=== PATIENT | male | born 1945 | race Caucasian/White ===

== ENCOUNTER 2019-03-25 22:35 | Inpatient (IN) | payer MEDICARE, MEDICAID ==
[~2019-03-25] VITALS: Ht 175.3 cm; Wt 66.7 kg
[~2019-03-25 22:35] MED LIST: ALBU2.5V52 INH; ASPI-587 PO; CALC-712 PO; CLN.1T PO; DILT360C20 PO; ENXP30I.3 SC; EZET10TA23 PO; FENO145T20 PO; FISH1CAP15 PO; FURO20TA4 PO; HYDR12.56 PO; IBUP800T26 PO; LISI40TA PO; MORP5VIA IV; MTF500T PO; Multivitamins/Minerals Therap PO; NSTU5 PO; OXYC1TAB87 PO; POTA20TA15 PO; PRAV20TA PO; Polyethylene Glycol PO; SNN187T PO; TMZP15C PO
[2019-03-25 23:30] VITALS: BP 140/61
[2019-03-26] VITALS (12 sets, daily range): BP systolic 97–151; BP diastolic 53–85
[2019-03-26] MEDS: fentaNYL INJECTION 100 MCG/2 ML AMP IVP PRN ×3 (01:02→13:50)
[2019-03-26] MEDS: NS IV 1000 ML 1,000 ML IV SCH ×2 (01:03→15:17)
[2019-03-26 04:59] LABS: BASOPHILS % (AUTO) 0 % (0-10); EOSINOPHILS % (AUTO) 0 % (0-10); HEMATOCRIT 25 % (40-54); HEMOGLOBIN 9.2 G/DL (13.3-17.7); LYMPHOCYTES # (AUTO) 1.2 X 10^3 (1.0-4.0); LYMPHOCYTES % (AUTO) 7 % (12-44); MEAN CORPUSCULAR HEMOGLOBIN 33 PG (25-34); MEAN CORPUSCULAR HGB CONC 37 G/DL (32-36); MEAN CORPUSCULAR VOLUME 89 FL (80-99); MEAN PLATELET VOLUME 9.8 FL (7.4-10.4); MONOCYTES # (AUTO) 1.7 X 10^3 (0.0-1.0); MONOCYTES % (AUTO) 11 % (0-12); NEUTROPHILS # (AUTO) 12.9 X 10^3 (1.8-7.8); NEUTROPHILS % (AUTO) 82 % (42-75); PLATELET COUNT 363 10^3/uL (130-400); RED CELL DISTRIBUTION WIDTH 14.9 % (10.0-14.5); WHITE BLOOD COUNT 15.8 10^3/uL (4.3-11.0)
[2019-03-26 05:16] LABS: ALBUMIN 3.2 GM/DL (3.2-4.5); BILIRUBIN,TOTAL 0.7 MG/DL (0.1-1.0); CALCIUM 8.5 MG/DL (8.5-10.1); CREATININE SERUM 1.33 MG/DL (0.60-1.30); POTASSIUM 4.8 MMOL/L (3.6-5.0); TOTAL PROTEIN 5.7 GM/DL (6.4-8.2)
[2019-03-26 05:19] LABS: HYPOCHROMASIA SLIGHT; LYMPHOCYTES % (MANUAL) 8 %; MONOCYTES % (MANUAL) 9 %; NEUTROPHILS % (MANUAL) 83 %
[2019-03-26 05:20] LABS: TARGET CELLS SLIGHT
[2019-03-26] MEDS ORDERED: CATHETER FLUSH 10 ML SYR IV PRN (08:00)
[2019-03-26 08:15] LABS: PROTHROMBIN TIME PATIENT 14.9 SEC (12.2-14.7)
[2019-03-26 08:16] LABS: INR 1.1 (0.8-1.4)
--- NOTE | 2019-03-26 09:09 | Consultation-Cardiology ---
HPI-Cardiology Cardiology Consultation: Date of Consultation 03/26/19 Time Seen by a Provider: 08:45 Date of Admission 03-26-19 Attending Physician Matthew Jaramillo MD Admitting Physician Harjinder Bedolla MD Consulting Physician Odell Taylor MD HPI: Chief Complaint: Non-syncopal fall Mr. Saab is a 73 year old male transferred to [facility] from [facility]. He reports he was sitting in his recliner last evening. He states he got up to go to the kitchen using his walker. He reports he took a few steps when he lost his balance and tripped and fell into his television. He reports he has chronic joint and back pain with difficulty walking for which he uses a walker. He denies any report of syncope or near syncope. He states he does have some intermittent dizziness with changes in position, but was not having any dizziness when he fell last evening. He denies any c/o CP, palpitations. He reports chronic exertional dyspnea which he feels is unchanged. He reports ch ronic bilat LE swelling for which he wears compression stockings. He states he sees Dr. Ehsan Anderson of [facility] at [facility]. He reports he does drink anywhere from 3-4 beers every night, sometimes more. He is reporting right hip pain. Review of Systems-Cardiology Review of Systems Constitutional: No chills, No fever Eyes: No vision change Ears/Nose/Throat: No epistaxis, No nasal drainage, No recent hearing loss Respiratory: As described under HPI Cardiovascular: As described under HPI Gastrointestinal: No constipation, No diarrhea, No nausea, No vomiting Genitourinary: dysuria; No hematuria Skin: No rash, No ulcerations Psychiatric/Neurological: No anxiety, No depression, No focal weakness, No syncope Hematologic: No bleeding abnormalities GNY-Tiyjum-Bmsfht Hx Patient Social History Recent Foreign Travel: No Recent Infectious Disease Expo: No Immunizations Up To Date Date of Pneumonia Vaccine: Aug 06, 2015 Past Medical History PMH As described under Assessment. Family Medical History Family Medical History: He reports his mother had CAD passing away in her 80's. He reports his father had a CVA in his 80's. He reports a brother with CAD. Family History: Cardiovascular disease Hypertension 19 MOTHER (40) Myocardial infarction 19 FATHER (83) Allergies and Home Medications Allergies Coded Allergies: No Known Drug Allergies (Unverified , 05/31/14) Home Medications Aspirin 81 Mg Tablet.dr, 81 MG PO DAILY, (Reported) Calcium Carbonate/Simethicone 1 Each Tab.chew, 1 TAB PO 1200, (Reported) Cyclobenzaprine HCl 5 Mg Tablet, 5 MG PO Q8H PRN for MUSCLE SPASMS, (Reported) Diltiazem HCl 300 Mg Capsule.er, 300 MG PO DAILY, (Reported) Ezetimibe 10 Mg Tablet, 10 MG PO DAILY, (Reported) Fenofibrate Nanocrystallized 145 Mg Tablet, 145 MG PO DAILY, (Reported) Furosemide 20 Mg Tablet, 20 MG PO DAILY, (Reported) Hydrocodone/Acetaminophen 1 Each Tablet, 1 TAB PO Q6H PRN for PAIN-MODERATE, (Reported) Ibuprofen 200 Mg Tablet, 400 MG PO BID PRN for PAIN-MILD, (Reported) Losartan Potassium 50 Mg Tablet, 50 MG PO DAILY, (Reported) Naproxen Sodium 220 Mg Tablet, 220 MG PO DAILY, (Reported) King[place]-3 Fatty Acids/Fish Oil 1 Each Capsule, 1,200 MG PO DAILY, (Reported) Omeprazole 20 Mg Capsule.dr, 20 MG PO DAILY, (Reported) Potassium Chloride 20 Meq Tablet.er, 20 MEQ PO DAILY, (Reported) Pravastatin Sodium 20 Mg Tablet, 20 MG PO HS, (Reported) Vitamin B Complex 1 Each Tablet, 1 TAB PO DAILY, (Reported) Physical Exam-Cardiology Physical Exam Vital Signs/I&O Capillary Refill : Less Than 3 Seconds Constitutional: AAO x 3, other (thin) HEENT: PERRL, hearing is well preserved Neck: No carotid bruit; carotid pulses are 2 + bilaterally Respiratory: No accessory muscle use, No respiratory distress; chest expansion is symmetric, chest is bilaterally symmetric, lungs clear to auscultation Cardiovascular: regular rate-rhythm; No JVD; S1 and S2, systolic murmur Gastrointestinal: No tender; soft, round, audible bowel sounds Extremities: swelling (mild bilat LE swelling) Neurologic/Psychiatric: grossly intact (did not manipulate right leg d/t fracture) Skin: No rash on exposed areas, No ulcerations on exposed areas Data Review Labs Microbiology 03/26/19 MRSA Screen - Final, Complete MRSA not isolated ECG Impression ECG Initial ECG Rhythm: Normal Sinus A/P-Cardiology Assessment/Admission Diagnosis S/P right femur fracture from a non-syncopal fall Reports h/o valvular heart dz, details unknown, followed by Dr. Anderson at [facility], [place], [place] HTN HLD - statin tx Hyponatremia of undetermined etiology - possibly d/t chronic heavy alcohol use Acute renal insufficiency H/O Heavy ETOH use H/O chronic back pain GERD Clinical Quality Measures DVT/VTE Risk/Contraindication: Risk Factor Score Per Nursin RFS Level Per Nursing on Admit: 4+=Very High CORBIN MONREAL Mar 26, 2019 09:09
--- NOTE | 2019-03-26 10:03 | NUR ---
DR NEGRNO NOTIFIED OF PER PT AND DAUGHTER THAT PT IS DAILY DRINKER 6-8 BEERS.
[2019-03-26] MEDS ORDERED: FENO145T37 PO (10:07)
[2019-03-26] MEDS ORDERED: OMEP20CA12 PO (10:07)
[2019-03-26] MEDS ORDERED: PRAV20TA3 PO (10:07)
[2019-03-26] MEDS ORDERED: EZET10TA49 PO (10:07)
--- NOTE | 2019-03-26 10:12 | Consultation-Cardiology ---
HPI-Cardiology Cardiology Consultation: Date of Consultation 03/26/19 Time Seen by a Provider: 09:45 Date of Admission Attending Physician Matthew Jaramillo MD Admitting Physician Harjinder Bedolla MD Consulting Physician ANA GONZALEZ MD, MA, FACP, FAC, [facility], [facility] Physician requesting consult: Dr Marcelino HPI: Chief Complaint: Reason for consultation: cardiac eval prior to hip surgery HPI Mr. Saab is a 73 year old male transferred to [facility] from [facility]. He reports he was sitting in his recliner last evening. He states he got up to go to the kitchen using his walker. He reports he took a few steps when he lost his balance and tripped and fell into his television. He reports he has chronic joint and back pain with difficulty walking for which he uses a walker. He denies any report of syncope or near syncope. He states he does have some intermittent dizziness with changes in position, but was not having any dizziness when he fell last evening. He denies any c/o CP, palpitations. He reports chronic exertional dyspnea which he feels is unchanged. He reports chronic bilat LE swelling for which he wears compression stockings. He states he sees Dr. Ehsan Anderson of [facility] at [facility]. He reports he does drink anywhere from 3-4 beers every night, sometimes more. He is reporting right hip pain. Review of Systems-Cardiology Review of Systems Constitutional: No chills, No fever Eyes: No vision change Ears/Nose/Throat: No epistaxis, No nasal drainage, No recent hearing loss Respiratory: As described under HPI Cardiovascular: As described under HPI Gastrointestinal: No constipation, No diarrhea, No nausea, No vomiting Genitourinary: dysuria; No hematuria Skin: No rash, No ulcerations Psychiatric/Neurological: No anxiety, No depression, No focal weakness, No syncope Hematologic: No bleeding abnormalities PPH-Ivqwsa-Kzoavw Hx Patient Social History Recent Foreign Travel: No Recent Infectious Disease Expo: No Immunizations Up To Date Date of Pneumonia Vaccine: Aug 06, 2015 Past Medical History PMH As described under Assessment. Family Medical History Family Medical History: He reports his mother had CAD passing away in her 80's. He reports his father had a CVA in his 80's. He reports a brother with CAD. Family History: Cardiovascular disease Hypertension 19 MOTHER (40) Myocardial infarction 19 FATHER (83) Allergies and Home Medications Allergies Coded Allergies: No Known Drug Allergies (Unverified , 05/31/14) Home Medications Aspirin 81 Mg Tablet.dr, 81 MG PO DAILY, (Reported) Calc/D3/Mag/Zn/Orthotic Finish Grinding Technician/Daniel/Alton 1 Each Tablet, 1 EACH PO DAILY, (Reported) Ezetimibe 10 Mg Tablet, 10 MG PO DAILY, (Reported) Fenofibrate Nanocrystallized 145 Mg Tablet, 145 MG PO DAILY, (Reported) Fish Oil/Dha/Epa 1 Each Capsule, 1,200 MG PO BID, (Reported) Furosemide 20 Mg Tablet, 10 MG PO DAILY, (Reported) Lisinopril 40 Mg Tablet, 40 MG PO DAILY, (Reported) Metformin Hcl 500 Mg Tablet, 500 MG PO DAILY, (Reported) Potassium Chloride 20 Meq Tab.prt.sr, 20 MEQ PO BID, (Reported) Pravastatin Sodium 20 Mg Tablet, 20 MG PO HS, (Reported) [Multivitamins/Minerals Therap] 1 EA TABLET, 1 EA PO DAILY@0700 Prescribed by: JAMES HUNTLEY on 06/03/14 1315 Patient Home Medication List Home Medication List Reviewed: Yes Physical Exam-Cardiology Physical Exam Vital Signs/I&O 03/25/19 03/25/19 03/25/19 03/26/19 23:30 23:30 23:30 04:00 Temp 97.9 97.7 97.0 Pulse 63 63 59 Resp 18 18 20 B/P (MAP) 140/61 (87) 140/61 141/64 (89) Pulse Ox 96 96 95 96 O2 Delivery Room Air Room Air Room Air Room Air 03/26/19 08:13 Temp 97.5 Pulse 65 Resp 22 B/P (MAP) 126/67 (86) Pulse Ox 98 O2 Delivery Room Air O2 Flow Rate 0.00 Capillary Refill : Less Than 3 Seconds Constitutional: AAO x 3, other (thin) HEENT: PERRL, hearing is well preserved Neck: No carotid bruit; carotid pulses are 2 + bilaterally Respiratory: No accessory muscle use, No respiratory distress; chest expansion is symmetric, chest is bilaterally symmetric, lungs clear to auscultation Cardiovascular: regular rate-rhythm; No JVD; S1 and S2, systolic murmur Gastrointestinal: No tender; soft, round, audible bowel sounds Extremities: swelling (mild bilat LE swelling) Neurologic/Psychiatric: grossly intact (did not manipulate right leg d/t fracture) Skin: No rash on exposed areas, No ulcerations on exposed areas Data Review Labs Laboratory Tests 03/26/19 04:40: White Blood Count 15.8H, Red Blood Count 2.79L, Hemoglobin 9.2L, Hematocrit 25L, Mean Corpuscular Volume 89, Mean Corpuscular Hemoglobin 33, Mean Corpuscular H emoglobin Concent 37H, Red Cell Distribution Width 14.9H, Platelet Count 363, Mean Platelet Volume 9.8, Neutrophils (%) (Auto) 82H, Lymphocytes (%) (Auto) 7L, Monocytes (%) (Auto) 11, Eosinophils (%) (Auto) 0, Basophils (%) (Auto) 0, Neutrophils # (Auto) 12.9H, Lymphocytes # (Auto) 1.2, Monocytes # (Auto) 1.7H, Eosinophils # (Auto) 0.0, Basophils # (Auto) 0.0, Neutrophils % (Manual) 83, Lymphocytes % (Manual) 8, Monocytes % (Manual) 9, Hypochromasia SLIGHT, Target Cells SLIGHT, Sodium Level 126L, Potassium Level 4.8, Chloride Level 98, Carbon Dioxide Level 21, Anion Gap 7, Blood Urea Nitrogen 16, Creatinine 1.33H, Estimat Glomerular Filtration Rate 53, BUN/Creatinine Ratio 12, Glucose Level 111H, Calcium Level 8.5, Corrected Calcium 9.1, Total Bilirubin 0.7, Aspartate Amino Transf (AST/SGOT) 32, Alanine Aminotransferase (ALT/SGPT) 16, Alkaline Phosphatase 44, Total Protein 5.7L, Albumin 3.2 03/26/19 07:45: Prothrombin Time 14.9H, INR Comment 1.1 Laboratory Tests 03/26/19 04:40 A/P-Cardiology Assessment/Admission Diagnosis S/P right femur fracture from a non-syncopal fall Echo of 03/26/19: LVEF 55-60%, mild to mod MR, mod dilatation of LA, RVSP estimated to be within normal limits HTN HLD - statin tx H/o IFG vs borderline DM II Hyponatremia of undetermined etiology - possibly d/t chronic heavy alcohol use Renal insufficiency of undetermined age, probably acute H/O Heavy ETOH use H/O chronic back pain GERD Discussion and Recomendations * Cardiac risk for non-cardiac surgery is estimated be low to intermediate. It appears reasonable to proceed with necessary surgery * We recommend arnie-op DVT prophylaxis * Monitor labs Clinical Quality Measures DVT/VTE Risk/Contraindication: Risk Factor Score Per Nursin RFS Level Per Nursing on Admit: 4+=Very High ANA GONZALEZ MD [facility] Mar 26, 2019 10:12
--- NOTE | 2019-03-26 10:24 | History & Physical-Hospitalist ---
History of Present Illness HPI/Chief Complaint The patient is a 73-year-old white male who was transferred from the [facility]. He is disabled with compression fractures in the lumbar spine and subsequent sciatica issues. In addition he previously had a left hip fracture. Yesterday he attempted to get out of the recliner using a walker. His legs buckled and he fell. He states that he was on the floor for 3 hours before getting help. He went to the emergency room and was found to have a right femur fracture. I received a call from Mr. Kapoor to transfer him here and he had arranged for Dr. Marcelino to perform the definitive stabilization. The patient reports that he drinks beer on a daily basis he told Mr. Kapoor 2-3 beers per day. His family states more like 4-6 beers per day. Date Seen 03/26/19 Time Seen by a Provider: 10:19 Attending Physician Matthew Negron MD PCP Harjinder Bedolla MD Referring Physician Date of Admission Mar 26, 2019 at 00:09 Home Medications & Allergies Home Medications Reviewed patient Home Medication Reconciliation performed by pharmacy medication reconciliations transfill technician and/or nursing. Patients Allergies have been reviewed. Allergies Allergies Coded Allergies No Known Drug Allergies (Unverified05/31/14) Past Zfoxlen-Lkqnzk-Jxejgn Hx Past Med/Social Hx: Reviewed Nursing Past Med/Soc Hx Patient Social History Recent Foreign Travel: No Contact w/other who traveled: No Recent Infectious Disease Expo: No Immunizations Up To Date Date of Pneumonia Vaccine: Aug 06, 2015 Past Medical History Reproductive: No Sexually Transmitted Disease: No HIV/AIDS: No Musculoskeletal: Arthritis, Chronic Back Pain, Fractures Loss of Vision: Denies Hearing Impairment: Hard of Hearing Adverse Reaction to Blood Sena: No Family History Cardiovascular disease Hypertension 19 MOTHER (40) Myocardial infarction 19 FATHER (83) Review of Systems Constitutional: see HPI EENTM: no symptoms reported Respiratory: no symptoms reported Cardiovascular: other (history of ischemic heart disease.) Gastrointestinal: constipation Genitourinary: no symptoms reported Musculoskeletal: see HPI Physical Exam Physical Exam Vital Signs Vital Signs - First Documented 03/26/19 08:13 O2 Flow Rate 0.00 Capillary Refill : Less Than 3 Seconds Height, Weight, BMI Height: 5'9.00" Weight: 147lbs. 0.5oz. 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 Assessment/Plan Admission Diagnosis Chronic back pain/sciatica. 2.arteriosclerotic heart disease. 3.fracture right femur. Admission Status: Inpatient Order (span 2 midnights) Reason for Inpatient Admission: Fracture requiring operative repair plus rehabilitation Clinical Quality Measures DVT/VTE Risk/Contraindication: Risk Factor Score Per Nursin RFS Level Per Nursing on Admit: 4+=Very High MATTHEW NEGRON MD Mar 26, 2019 10:24
[2019-03-26] MEDS ORDERED: POTA-51 PO (11:01)
[2019-03-26] MEDS ORDERED: FURO20TA4 PO (11:01)
[2019-03-26] MEDS ORDERED: VITA1TAB17 PO (11:01)
[2019-03-26] MEDS ORDERED: ASPI-983 PO (11:01)
[2019-03-26] MEDS ORDERED: LOSA50TA63 PO (11:01)
[2019-03-26] MEDS ORDERED: OMEG-109 PO (11:01)
[2019-03-26] MEDS ORDERED: NAPR220T66 PO (11:01)
[2019-03-26] MEDS ORDERED: CALC-899 PO (11:01)
[2019-03-26] MEDS ORDERED: DILT300C49 PO (11:01)
[2019-03-26] MEDS ORDERED: CYCL5TAB PO (11:06)
[2019-03-26] MEDS ORDERED: IBUP-30 PO (11:06)
[2019-03-26] MEDS ORDERED: HYDR-3812 PO (11:06)
--- NOTE | 2019-03-26 11:09 | NUR ---
PATIENT HAD A LIST OF MEDICATIONS WITH HIM THAT HE STATES IS THE MOST UP TO DATE LIST. I COMPARED IT WITH THE EXT MED HX . IN ADDITION TO THAT LIST HE WAS RECENTLY PRESCRIBED SHORT SUPPLIES OF HYDROCODONE AND CYCLOBENZAPRINE HE HAS BEEN USING. HE STATES HE FINISHED THE PREDNISONE. HE WAS INSTRUCTED TO HOLD OFF ON HIS ALEVE AND IBU WHILE TAKING THE HYDROCODONE AND FLEXERIL. HIS POTASSIUM IS FILLED BID HOWEVER HE STATES HE ONLY TAKES ONE DAILY. HE TAKES THE FOLLOWING OTC: ASPIRIN 81MG DAILY MARY SELTER NOON ADVIL PRN ALEVE DAILY FISH OIL DAILY B COMPLEX DAILY
[2019-03-26 11:54] LABS: BUN/CREATININE RATIO 13; CARBON DIOXIDE 22 MMOL/L (21-32); CHLORIDE 101 MMOL/L (98-107); CREATININE SERUM 1.11 MG/DL (0.60-1.30); GFR ESTIMATED > 60; GLUCOSE 87 MG/DL (70-105); POTASSIUM 4.8 MMOL/L (3.6-5.0); SODIUM 130 MMOL/L (135-145)
--- NOTE | 2019-03-26 12:08 | CONSULTATION REPORT ---
DATE OF SERVICE: 03/26/2019 REASON FOR CONSULTATION: Right subtrochanteric femur fracture, closed, nondisplaced. HISTORY OF PRESENT ILLNESS: The patient is a 73-year-old gentleman who fell at home, striking his leg on the ground. He presented to an outside facility where he was found to have a subtrochanteric femur fracture. The fracture was nondisplaced and just distal to the lesser trochanter in a transverse fashion. The outside facility had no orthopedic coverage. Therefore, he was transferred here and admitted to the hospitalist. The patient denies antecedent pain. PAST MEDICAL HISTORY: Hypertension, hyperlipidemia, type 2 diabetes, mitral valve regurgitation. PRIMARY CARE PROVIDER: Dr. Ann Gaitan. PAST SURGICAL HISTORY: Left hip pinning, tonsillectomy. FAMILY HISTORY: Significant for stroke and heart disease. MEDICATIONS: Metformin, , Zetia, potassium, pravastatin, B complex, omega 3, lisinopril. PHYSICAL EXAMINATION: GENERAL: The patient is a well-developed, well-nourished, in no acute distress. EXTREMITIES: The right lower extremity is slightly externally rotated. He has symmetric pulses. He has intact dorsiflexion and plantarflexion of the toes. He is tender over the proximal femur on the right. No skin lesions are noted. RADIOGRAPHS: As above. IMPRESSION: Right subtrochanteric femur fracture. PLAN: Right femur intramedullary nail. The risks, benefits, options, ramifications and recovery were discussed at length with the patient. He understands and wishes to proceed. Job ID: [id number] DocumentID: [id number] Dictated Date: 03/26/2019 07:32:38 Operations Staff Specialist Security Date: 03/26/2019 12:08:24 Dictated By: RC MITCHELL MD
[2019-03-26] MEDS ORDERED: HYDROmorphone 2 MG/ML VIAL (DILAUDID) ONE (15:19)
[2019-03-26] MEDS ORDERED: ONDANSETRON 4 MG/2 ML (SDV) Z0FRAN ONE ×2 (15:20→17:10)
[2019-03-26] MEDS ORDERED: morphine INJ 10 MG/ML 1ML (SYR OR VIAL) ONE (15:20)
[2019-03-26] MEDS ORDERED: LIDOCAINE PF 2% 5 ML (XYLOCAINE) VIAL ONE (15:26)
[2019-03-26] MEDS ORDERED: proPOfol 200 MG/20 ML (DIPRIVAN) VIAL IV ONE (15:26)
[2019-03-26] MEDS ORDERED: fentaNYL INJECTION 100 MCG/2 ML AMP ONE (15:27)
--- NOTE | 2019-03-26 15:30 | NUR ---
PT TAKEN OFF FLOOR FOR PROCEDURE AT THIS TIME. Addendum: 03/26/19 at 1845 by MARSHA PORTILLO RN IV CEFAZOLIN SENT WITH STAFF THAT IS SCHEDULED FOR 1277
[2019-03-26] MEDS ORDERED: oxyCODONE/APAP 5/325MG (PERCOCET 5) TABLET PO PRN (15:45)
[2019-03-26] MEDS ORDERED: ONDANSETRON 4 MG/2 ML (SDV) Z0FRAN IVP PRN ×2 (15:45→17:15)
[2019-03-26] MEDS ORDERED: fentaNYL INJECTION 100 MCG/2 ML AMP IVP PRN (15:45)
--- NOTE | 2019-03-26 15:45 | Progress Note-Pre Operative ---
Pre-Operative Progress Note H&P Reviewed The H&P was reviewed, patient examined and no changes noted. Date Seen by Provider: Mar 26, 2019 Time Seen by Provider: 15:45 Date H&P Reviewed: Mar 26, 2019 Time H&P Reviewed: 15:45 Pre-Operative Diagnosis: right subtrochanteric femur fracture RC MITCHELL MD Mar 26, 2019 15:45
--- NOTE | 2019-03-26 15:46 | Progress Note-Post Operative ---
Post-Operative Progess Note Surgeon (s)/Overlock Elastic Attacher (s) Surgeon RC MITCHELL MD Overlock Elastic Attacher: Tim Stanton Pre-Operative Diagnosis right subtrochanteric femur fracture Post-Operative Diagnosis right subtrochanteric femur fracture Procedure & Operative Findings Date of Procedure 03/26/19 Procedure Performed/Findings intramedullary nail right femur Anesthesia Type GETA Estimated Blood Loss Estimated blood loss (mL): 100ml Specimens/Packing Specimens Removed none Packing: none RC MITCHELL MD Mar 26, 2019 15:46
[2019-03-26] MEDS ORDERED: ceFAZolin 2 GM/50 ML NS 50 ML IV NR (16:30)
[2019-03-26] MEDS ORDERED: SEVOFLURANE (ULTANE) 15 ML INHAL SOLN ONE (17:00)
[2019-03-26] MEDS ORDERED: morphine INJ 10 MG/ML 1ML (SYR OR VIAL) IVP ONE (17:15)
[2019-03-26] MEDS ORDERED: HYDROmorphone 2 MG/ML VIAL (DILAUDID) IV ONE (17:15)
[2019-03-26] MEDS ORDERED: LACTATED RINGERS 1,000 ML IV PRN (18:00)
[2019-03-26] MEDS ORDERED: NS IV 1000 ML 1,000 ML IV PRN ×2 (18:00→18:15)
--- NOTE | 2019-03-26 18:15 | NUR ---
PT BACK TO FLOOR AT THIS TIME. REPORT RECEIVED FROM ROSY. PT A/O. RATES PAIN 03/02. IV IN LAC INTACT. VS OBTAINED. ICE IN PLACE TO RIGHT LEG. 1829 DR NEGRON GAVE ORDERS VIA PHONE FOR REGULAR DIET.
--- NOTE | 2019-03-26 18:42 | Diagnostic Imaging Report ---
INDICATION: Right hip fracture FINDINGS: Intraoperative views were obtained with a portable intensifier in surgery during ORIF of right proximal femoral subtrochanteric fracture. Intraoperative views demonstrate good alignment of the fracture fragments with orthopedic hardware in the femoral neck and shaft with intramedullary sury component. 125 seconds of fluoroscopy time was used in surgery. IMPRESSION: Anatomic alignment of right proximal femoral fracture, status post ORIF. Dictated by: Dictated on workstation # [id number]
[2019-03-26] MEDS: ceFAZolin INJECTION 1,000 MG in WATER (STERILE) FOR INJECTION 10 ML IV SCH (23:08)
[2019-03-27] VITALS (9 sets, daily range): BP systolic 83–114; BP diastolic 49–71
[2019-03-27] MEDS: NS IV 1000 ML 1,000 ML IV SCH ×3 (03:38→20:15)
--- NOTE | 2019-03-27 04:36 | OPERATIVE REPORT ---
DATE OF SERVICE: 03/26/2019 PREOPERATIVE DIAGNOSIS: Right subtrochanteric femur fracture. POSTOPERATIVE DIAGNOSIS: Right subtrochanteric femur fracture. PROCEDURE: Intramedullary nail, right femur. SURGEON: Marcelo Mitchell MD. INFORMATICS DEVELOPER: Tim Stanton, who assisted throughout the procedure, helped with positioning, retraction and closing the incisions. ANESTHESIA: General endotracheal by Gisselle Al CRNA. ESTIMATED BLOOD LOSS: Approximately 100 mL. DRAINS: None. COMPLICATIONS: None. POSTOPERATIVE PLAN: 50% weightbearing right lower extremity. MATERIALS: Synthes TFN nail 420 x 11 with a 100 mm blade. STATEMENT OF MEDICAL NECESSITY: The patient is a 73-year-old gentleman, who fell last evening and was found to have a subtrochanteric femur fracture at an outside facility. There was no orthopedic coverage. Therefore, he was transferred here for definitive care. The patient was counseled regarding treatment options and elected to proceed with surgical intervention. DESCRIPTION OF PROCEDURE: After risks and benefits of the procedure were discussed and questions were answered, an informed consent was signed and placed on the chart. The operative site was confirmed in the preoperative holding area initialed by the surgeon. The patient was then transported to the operating room and after adequate levels of general endotracheal anesthetic were obtained, a timeout was called, confirming the operative site. The patient was carefully placed on the fracture table and gentle longitudinal traction was applied. Anatomic alignment was obtained of the fracture. The right hip and lower extremity were prepped and draped in the usual sterile fashion. An incision was made beginning proximal to the greater trochanter extending proximally approximately 6 cm. The underlying soft tissues were dissected exposing the greater trochanter under fluoroscopic visualization. The guidewire was passed across the fracture site and the proximal reamer was used. The guidewire was removed and exchanged for a long guidewire, which was then passed across the fracture site to the distal aspect of the femur. This was found to be well-placed in both the AP and lateral planes. An 11 x 420 mm sury was then placed and felt to be in excellent position. Through a stab incision, the blade guide was placed and the guidewire was passed. This was felt to be in good position. This was then overdrilled and a 100 mm blade was placed. The set screw was placed and the handle was removed. Using the perfect mentasta technique through a stab incision distally, a locking screw was placed with good purchase obtained fluoroscopy in AP, lateral and oblique planes revealed anatomic reduction of the fracture with well-placed hardware. The wounds were copiously irrigated. Proximally, the iliotibial band was closed with a 0 Vicryl in [id number] interrupted fashion. All three incisions were closed with 2-0 Vicryl in the subcutaneous layer and markell were used on the skin. The incisions were infiltrated with plain Marcaine. A soft dressing was applied and the patient was transferred to the recovery room awake and in stable condition. Job ID: [id number] DocumentID: [id number] Dictated Date: 03/26/2019 17:14:14 Physical Chemistry Teacher Date: 03/27/2019 04:36:12 Dictated By: MARCELO MITCHELL MD
[2019-03-27 06:24] LABS: HEMOGLOBIN 8.2 G/DL (13.3-17.7)
--- NOTE | 2019-03-27 07:00 | Progress Note-Standard ---
Standard Progress Note Progress Notes/Assess & Plan Date Seen by a Provider: Mar 27, 2019 Time Seen by a Provider: 06:58 Progress/Assessment & Plan no complaints Laboratory Tests Test 03/26/19 07:45 03/26/19 11:06 03/27/19 05:55 Range/Units Prothrombin Time 14.9 H 12.2-14.7 SEC INR Comment 1.1 0.8-1.4 Sodium Level 130 L 135-145 MMOL/L Potassium Level 4.8 3.6-5.0 MMOL/L Chloride Level 101 98-107 MMOL/L Carbon Dioxide Level 22 21-32 MMOL/L Anion Gap 7 5-14 MMOL/L Blood Urea Nitrogen 14 7-18 MG/DL Creatinine 1.11 0.60-1.30 MG/DL Estimat Glomerular Filtration Rate > 60 BUN/Creatinine Ratio 13 Glucose Level 87 70-105 MG/DL Calcium Level 9.0 8.5-10.1 MG/DL Hemoglobin 8.2 L 13.3-17.7 G/DL Hematocrit 24 L 40-54 % RLE--dressing intact. intact DF and PF of toes and ankle. equal DP pulses. sensation at baseline throughout s/p IM WILFRID R femur PT fot 50% WB RLE will likely require NH vs WM placement RC MITCHELL MD Mar 27, 2019 07:00
[2019-03-27] MEDS: ENOXAPARIN 40 MG/0.4 ML (LOVENOX) SYR SC SCH (08:08)
[2019-03-27] MEDS: ceFAZolin INJECTION 1,000 MG in WATER (STERILE) FOR INJECTION 10 ML IV SCH (08:09)
--- NOTE | 2019-03-27 09:36 | Physical Therapy Evaluation ---
PT Evaluation-General Medical Diagnosis Admission Date Mar 26, 2019 at 00:09 Medical Diagnosis: right femur fracture Onset Date: Mar 26, 2019 Therapy Diagnosis Therapy Diagnosis: generalized weakness/debility Height/Weight Height (Feet): 5 Height (Inches): 9.00 Weight (Pounds): 147 Weight (Ounces): 0.5 Precautions Precautions/Isolations: Fall Prevention, Standard Precautions Weight Bear Status Right Lower Extremity: Right Partial Weight Bearing Left Lower Extremity: Left Full Weight Bearing Referral Physician: Chari Reason for Referral: Evaluation/Treatment Medical History Pertinent Medical History: Alcoholism, Arthritis Additional Medical History back issues Current History Transfer from [facility] secondary to fall resulting in right femur fracture at home Reviewed History: Yes Social History Home: Single Level Current Living Status: Alone Prior/Core FIM Prior Level of Function Therapy Code Descriptions/Definitions Functional [place] Measure: 0=Not Assessed/NA 4=Minimal Assistance 1=Total Assistance 5=Supervision or Setup 2=Maximal Assistance 6=Modified [place] 3=Moderate Assistance 7=Complete [place] Therapy Quality Codes: 6 Independent with activity with or without an assistive device 5 Patient requires set up or clean up by helper. Patient completes activity by themselves 4 Supervision or touching assist (CGA). [place] provide cues , steadying assist 3 The helper provides less than half the effort to complete the activity 2 The helper provides more than half the effort to complete the activity 1 Dependent. The helper does all the effort to complete an activity 7 Patient refused to complete or attempt activity 9 The patient did not perform the activity before the current illness or in jury 88 Not attempted due to Medical conditions or safety concerns Functional Abilities and Goals: Independent: Patient completed the activities by him/herself, with or without an assistive device, with no assistance from a helper. Needed Some Help: Patient needed partial assistance from another person to complete activities. Dependent: A helper completed the activities for the patient. Unknown: Not Applicable: Bed Mobility: 6 Transfers (B,C,W/C) (FIM): 6 Gait: 6 Indoor Mobility (Ambulation): Independent Prior Devices Use: Walker PT Evaluation-Current Subjective Patient is very agreeable to participate with PT. This patient is very well known by this PT. Pain Numeric Pain Scale: 5-Moderate Pain Location: Right Location Body Site: Thigh Pain Description: Acute Objective Patient Orientation: Normal For Age Problem Solving: Fair Attachments: IV ROM/Strength ROM Lower Extremities right LE WFL, however, increase c/o patient with ROM due to surgery/left LE WFL Strength Lower Extremities left LE 3+/5 grossly/right LE 3/5 grossly Integumentary/Posture Integumentary refer to nursing notes Bowel Incontinence: No Bladder Incontinence: No Posture WFL Neuromuscular (Tone, Coordination, Reflexes) grossly intact Sensory Vision: Wears Glasses Hearing: Impaired Sensation Right Lower Extremit: Intact Sensation Left Lower Extremity: Intact Transfers Therapy Code Descriptions/Definitions Functional [place] Measure: 0=Not Assessed/NA 4=Minimal Assistance 1=Total Assistance 5=Supervision or Setup 2=Maximal Assistance 6=Modified [place] 3=Moderate Assistance 7=Complete [place] Transfers (B, C, W/C) (FIM): 4 Scootin Rollin Supine to/from Sit: 4 Sit to/from Stand: 4 CGA for safety Gait Anticipated Mode of Locomotion: Walk Gait (FIM): 1 Distance (FIM): 1=up to 49 ft Distance: 5' Gait Level of Assist: 4 Gait Assistive Device: FWW Comments/Gait Description Patient is able to comply with PWB right LE short distances at this time. Balance Sitting Static: Normal Sitting Dynamic: Normal Standing Static: Fair Standing Dynamic: Fair Assessment/Needs 73 y.o. male, will benefit from skilled PT to address functional strength and mobility to improve current LOF and to safely return to home or care facility at maximum LOF. Rehab Potential: Fair Post Rehab Potential-Barriers: compliance PT Precast Molder Goals Precast Molder Goals PT Precast Molder Goals Time Frame: Apr 14, 2019 Transfers (B,C,W/C) (FIM): 6 Gait (FIM): 2 Gait distance (FIM): 9=852-52 ft Distance: 125' Gait Level of Assist: 6 Gait Assistive Device: FWW PT Plan Problem List Problem List: Activity Tolerance, Functional Strength, Safety, Balance, Gait, Transfer, Bed Mobility Treatment/Plan Treatment Plan: Continue Plan of Care Treatment Plan: Bed Mobility, Education, Functional Activity Chikis, Functional Strength, Gait, Safety, Therapeutic Exercise, Transfers Treatment Duration: Apr 14, 2019 Frequency: 11 times per week Estimated Hrs Per Day: .5 hour per day Patient and/or Family Agrees t: Yes Safety Risks/Education Patient Education: Gait Training, Safety Issues Teaching Recipient: Patient Teaching Methods: Demonstration, Discussion Response to Teaching: Verbalize Understanding, Return Demonstration Discharge Recommendations Therapy D/C Recommendations: Acute Rehab, Shelter Placement, Jail (TCU/NH) Time/GCodes Time In: 805 Time Out: 828 Total Billed Treatment Time: 23 [facility] WANG PT Mar 27, 2019 09:36
--- NOTE | 2019-03-27 10:20 | NUR ---
DR NEGRON NOTIFIED OF MANUAL BP OF 80/42. PT REQUESTING PAIN MEDICATION. TYLENOL GIVEN, ICE PACK IN PLACE TO RIGHT LEG/HIP. PT IS UP IN CHAIR. NOTIFIED PT OF UNABLE TO GIVE OPIOID PAIN MEDICATION AT THIS TIME D/T LOW BP PER DR. VINSON. NO OTHER NEW ORDERS RECEIVED AT THIS TIME. WILL MONITOR BP CLOSELY.
[2019-03-27] MEDS: ACETAMINOPHEN 325 MG TABLET PO PRN ×2 (10:26→20:14)
--- NOTE | 2019-03-27 11:49 | Progress Note-Hospitalist ---
Progress Note Progress Notes/Assess & Plan Date Seen 03/27/19 Time Seen by Provider: 11:47 Assessment & Plan The patient reports that he is feeling much better postoperative than he did prior to fixation of his femur fracture. He has no concerns at this time. Physical exam: He is alert and oriented. He was sitting in a chair at bedside. Lungs are distant but clear. CV is regular. Impression: Right femur fracture post placement of intramedullary nail. Plan: PT as dictated by ARUN Ang MD Mar 27, 2019 11:49
--- NOTE | 2019-03-27 13:50 | NUR ---
DR NEGRON NOTIFIED OF BP 87/50. PT WAS PLACED BACK INTO BED FROM CHAIR X2 ASSIST. PT PROXIMAL DRESSING TO RIGHT LEG NOTED TO HAVE SANGUINEOUS DRAINAGE. DRESSING REINFORCED. NO NEW ORDERS RECEIVED.
--- NOTE | 2019-03-27 14:13 | Physical Therapy Daily Note ---
PT Daily Note-Current Subjective Patient declined OOB activity this p.m., however, agrees to exercises. Pain Numeric Pain Scale: 7 Location: Right Location Body Site: Thigh Pain Description: Acute Mental Status Patient Orientation: Person, Time Attachments: IV Transfers Therapy Code Descriptions/Definitions Functional [place] Measure: 0=Not Assessed/NA 4=Minimal Assistance 1=Total Assistance 5=Supervision or Setup 2=Maximal Assistance 6=Modified [place] 3=Moderate Assistance 7=Complete [place] Therapy Quality Codes: 6 Independent with activity with or without an assistive device 5 Patient requires set up or clean up by helper. Patient completes activity by themselves 4 Supervision or touching assist (CGA). [place] provide cues , steadying assist 3 The helper provides less than half the effort to complete the activity 2 The helper provides more than half the effort to complete the activity 1 Dependent. The helper does all the effort to complete an activity 7 Patient refused to complete or attempt activity 9 The patient did not perform the activity before the current illness or injury 88 Not attempted due to Medical conditions or safety concerns Weight Bearing Right Lower Extremity: Right Partial Weight Bearing Left Lower Extremity: Left Full Weight Bearing Exercises Supine Ex: Ankle pumps, Quad Set, Heel Slides, Straight leg raise, Hip abd/add Supine Reps: 10 (AAROM right LE) Assessment Patient tolerates minimal activity this p.m. Noted increase in confusion in p.m. RN is aware. PT Retirement Goals Driller Machine Goals PT Retirement Goals Time Frame: Apr 14, 2019 Transfers (B,C,W/C) (FIM): 6 Gait (FIM): 2 Gait distance (FIM): 4=430-40 ft Distance: 125' Gait Level of Assist: 6 Gait Assistive Device: FWW PT Plan Treatment/Plan Treatment Plan: Continue Plan of Care Treatment Plan: Bed Mobility, Education, Functional Activity Chikis, Functional Strength, Gait, Safety, Therapeutic Exercise, Transfers Treatment Duration: Apr 14, 2019 Frequency: 11 times per week Estimated Hrs Per Day: .5 hour per day Patient and/or Family Agrees t: Yes Time/GCodes Time In: 1345 Time Out: 1357 Total Billed Treatment Time: 12 Total Billed Treatment 1 visit EX 12 min DANIELA WANG PT Mar 27, 2019 14:13
--- NOTE | 2019-03-27 14:18 | Progress Note-Hospitalist ---
Progress Note Progress Notes/Assess & Plan Date Seen 03/27/19 Time Seen by Provider: 14:17 Assessment & Plan Nurses report relative hypotension. This is true and he states that he tends to run low. That cannot be verified. However he is fully alert and eating lunch with some vigor. He will be given a bolus of IV fluids and observed. ARUN NEGRON MD Mar 27, 2019 14:18
--- NOTE | 2019-03-27 15:00 | NUR ---
NEW FLUID ORDERS CLARIFIED WITH DR NEGRON. ORDERED FOR PT TO HAVE 500ML BOLUS X1 THEN FLUIDS TO RUN AT 150ML/HR. FLUID BOLUS RUNNING AT THIS TIME.
--- NOTE | 2019-03-27 15:27 | NUR ---
CM/SS, respond to consult and visited with patient and his spouse Shellie Saab although they do not share a household. Patient has requested that a referral be sent to [facility], completed with Vanesa. Patient broke his left hip in 2013 and had a short term 7-day stay on [facility] at that time. He wishes to continue his post acute care under this same plan if possible before returning home. Shellie appears supportive and involved as needed. Patient's son Toño Saab resides in close proximity as does his grandson Imer Saab. Shellie Saab, spouse [address], [address] [facility]: [phone] CE: [phone] Patient and Shellie have two children, Toño and then daughter Arlene (sp?). Shellie reports that patient is a long-standing alcoholic and that they approx 10+ years ago and have not resided together since. She reports that he lives "like a hermit" in his parent's farmhouse, that it is very dirty and junked and cluttered. She also reports that historically patient would be so intoxicated he would urinate and defecate in bed or about the house. Shellie and the children have encouraged patient to move into a better living arrangement, perhaps assisted living. He has not agreed to even consider this and has not been able to abstain from liquor if that was offered as a means for improved relationships. Patient does have [facility], in-home services can be explored if patient agrees.
[2019-03-28] VITALS (11 sets, daily range): BP systolic 114–148; BP diastolic 58–85
--- NOTE | 2019-03-28 03:30 | NUR ---
HEARD PATIENT TALKING TO SOMEONE IN ROOM UPON CHECKING TO SEE WHO HE WAS TALKING TO THIS RN FOUND PATIENT TO BE PLEASANTLY CONFUSED. VOICED CONCERN THAT HE WAS SCARED AND WANTED TO HIDE IN THE BATHROOM UNTIL THE POLICE ARRIVED. THIS RN DID RECEIVE A CALL FROM THE POLICE DEPARTMENT CHECKING ON HIS WELL BEING. PATIENT REORIENTED EASILY AND HAD NO OTHER ISSUES DURING THE NIGHT. DID COME AND SIT AT BEDSIDE.
[2019-03-28] MEDS: NS IV 1000 ML 1,000 ML IV SCH (04:49)
[2019-03-28 06:33] LABS: HEMOGLOBIN 7.3 G/DL (13.3-17.7)
[2019-03-28] MEDS ORDERED: NS IV 500 ML 500 ML IV SCH (07:11)
--- NOTE | 2019-03-28 07:19 | Progress Note-Standard ---
Standard Progress Note Progress Notes/Assess & Plan Date Seen by a Provider: Mar 28, 2019 Time Seen by a Provider: 07:17 Progress/Assessment & Plan no complaints Laboratory Tests Test 03/26/19 07:45 03/26/19 11:06 03/27/19 05:55 Range/Units Prothrombin Time 14.9 H 12.2-14.7 SEC INR Comment 1.1 0.8-1.4 Sodium Level 130 L 135-145 MMOL/L Potassium Level 4.8 3.6-5.0 MMOL/L Chloride Level 101 98-107 MMOL/L Carbon Dioxide Level 22 21-32 MMOL/L Anion Gap 7 5-14 MMOL/L Blood Urea Nitrogen 14 7-18 MG/DL Creatinine 1.11 0.60-1.30 MG/DL Estimat Glomerular Filtration Rate > 60 BUN/Creatinine Ratio 13 Glucose Level 87 70-105 MG/DL Calcium Level 9.0 8.5-10.1 MG/DL Hemoglobin 8.2 L 13.3-17.7 G/DL Hematocrit 24 L 40-54 % RLE--dressing intact. intact DF and PF of toes and ankle. equal DP pulses. sensation at baseline throughout s/p IM WILFRID R femur PT fot 50% WB RLE will likely require NH vs WM placement Final Diagnosis no complaints Vital Signs Date Time Temp Pulse Resp B/P (MAP) Pulse Ox O2 Delivery O2 Flow Rate FiO2 03/28/19 04:00 98.4 100 18 131/65 (87) 98 Room Air 03/28/19 00:00 98.4 98 20 148/78 (101) 99 Room Air 03/27/19 20:10 94 Room Air 03/27/19 20:00 98.1 83 24 113/51 (71) 96 Room Air 03/27/19 19:45 98.1 83 24 113/51 (71) 96 Room Air 03/27/19 16:47 85/49 (61) 03/27/19 13:40 87/50 (62) 03/27/19 11:36 98.4 80 18 88/53 (65) 98 Room Air 03/27/19 08:05 98.2 77 18 91/52 (65) 94 Room Air 03/27/19 08:00 94 Room Air I & O 03/28/19 07:00 Intake Total 3350 ml Output Total 800 ml Balance 2550 ml Laboratory Tests Test 03/28/19 05:35 Range/Units Hemoglobin 7.3 L 13.3-17.7 G/DL Hematocrit 21 L 40-54 % RLE incisions clean and dry. NVI distally s/p IM wilfrid r femur with post op anemia secondary to surgical blood loss combined with anemia of chronic disease continute PT/OT transfuse two UNits PRBC to [facility] when accepted RC MITCHELL MD Mar 28, 2019 07:19
--- NOTE | 2019-03-28 08:51 | Physical Therapy Daily Note ---
PT Daily Note-Current Subjective Patient in bed pre tx, agrees to PT, has 3/10 pain in right hip. Appearance Patient in recliner post tx with nurse call, phone, tray, all needs met. Patient seemed to have a small leak in his IV, nurse notified. Mental Status Patient Orientation: Person, Place, Situation Attachments: IV Transfers Therapy Code Descriptions/Definitions Functional [place] Measure: 0=Not Assessed/NA 4=Minimal Assistance 1=Total Assistance 5=Supervision or Setup 2=Maximal Assistance 6=Modified [place] 3=Moderate Assistance 7=Complete [place] Therapy Quality Codes: 6 Independent with activity with or without an assistive device 5 Patient requires set up or clean up by helper. Patient completes activity by themselves 4 Supervision or touching assist (CGA). [place] provide cues , steadying assist 3 The helper provides less than half the effort to complete the activity 2 The helper provides more than half the effort to complete the activity 1 Dependent. The helper does all the effort to complete an activity 7 Patient refused to complete or attempt activity 9 The patient did not perform the activity before the current illness or injury 88 Not attempted due to Medical conditions or safety concerns Transfers (B, C, W/C) (FIM): 3 Scootin Rollin Supine to/from Sit: 3 Sit to/from Stand: 4 Bed to/from Chair: 4 Weight Bearing Right Lower Extremity: Right Partial Weight Bearing Left Lower Extremity: Left Full Weight Bearing Gait Training Gait (FIM): 1 Distance: 5' Gait Level of Assist: 4 Gait Persons Needed: 1 Gait Assistive Device: FWW Cues for positioning and to comply with WBS. Patient had much difficulty turning before sitting. Exercises Seated Therapy Exercises: Ankle pumps, Long arc quads, Hip flexion Seated Reps: 10 Treatments bed mobility and transfers, ambulation, LE exercise Assessment Current Status: Fair Progress Patient has trouble maintaining weight bearing status. PT Fci Goals Fci Goals PT Fci Goals Time Frame: Apr 14, 2019 Transfers (B,C,W/C) (FIM): 6 Gait (FIM): 2 Gait distance (FIM): 9=634-97 ft Distance: 125' Gait Level of Assist: 6 Gait Assistive Device: FWW PT Plan Problem List Problem List: Activity Tolerance, Functional Strength, Safety, Balance, Gait, Transfer, Bed Mobility, ROM Treatment/Plan Treatment Plan: Continue Plan of Care Treatment Plan: Bed Mobility, Education, Functional Activity Chikis, Functional Strength, Gait, Safety, Therapeutic Exercise, Transfers Treatment Duration: Apr 14, 2019 Frequency: 11 times per week Estimated Hrs Per Day: .5 hour per day Patient and/or Family Agrees t: Yes Safety Risks/Education Patient Education: Gait Training, Transfer Techniques, Reviewed Precautions, Correct Positioning, Safety Issues Teaching Recipient: Patient Teaching Methods: Demonstration, Discussion Response to Teaching: Reinforcement Needed Time/GCodes Time In: 0830 Time Out: 0850 Total Billed Treatment Time: 20 Total Billed Treatment 1 visit FA 20' EMERY MARTINEZ PT Mar 28, 2019 08:51
[2019-03-28 09:00] LABS: BASOPHILS % (AUTO) 0 % (0-10); EOSINOPHILS % (AUTO) 0 % (0-10); HEMATOCRIT 21 % (40-54); HEMOGLOBIN 7.3 G/DL (13.3-17.7); LYMPHOCYTES # (AUTO) 0.9 X 10^3 (1.0-4.0); LYMPHOCYTES % (AUTO) 7 % (12-44); MEAN CORPUSCULAR HEMOGLOBIN 33 PG (25-34); MEAN CORPUSCULAR HGB CONC 35 G/DL (32-36); MEAN CORPUSCULAR VOLUME 93 FL (80-99); MONOCYTES # (AUTO) 1.1 X 10^3 (0.0-1.0); MONOCYTES % (AUTO) 9 % (0-12); NEUTROPHILS # (AUTO) 11.2 X 10^3 (1.8-7.8); NEUTROPHILS % (AUTO) 84 % (42-75); PLATELET COUNT 319 10^3/uL (130-400); RED CELL DISTRIBUTION WIDTH 15.5 % (10.0-14.5); WHITE BLOOD COUNT 13.3 10^3/uL (4.3-11.0)
[2019-03-28 09:11] LABS: ALANINE AMINOTRANSFERASE 13 U/L (0-55); ALBUMIN 2.5 GM/DL (3.2-4.5); ALKALINE PHOSPHATASE 46 U/L (40-136); BILIRUBIN,TOTAL 0.5 MG/DL (0.1-1.0); BUN/CREATININE RATIO 14; CALCIUM 7.6 MG/DL (8.5-10.1); CARBON DIOXIDE 20 MMOL/L (21-32); CHLORIDE 103 MMOL/L (98-107); CREATININE SERUM 0.84 MG/DL (0.60-1.30); GFR ESTIMATED > 60; GLUCOSE 115 MG/DL (70-105); POTASSIUM 4.1 MMOL/L (3.6-5.0); SODIUM 129 MMOL/L (135-145); TOTAL PROTEIN 4.6 GM/DL (6.4-8.2)
--- NOTE | 2019-03-28 09:12 | NUR ---
IRF Evaluation Order received to evaluate patient for the ARU. Chart reviewed and discussed with Dr. Cooper - patient accepted. CM/SS notified. Anticipate admission, 03/28/19. Thank you for this referral. Addendum: 03/28/19 at 0951 by JANUARY Osvaldo GONZALES Met with patient to discuss details of rehabilitation program. Patient stated he desires to admit to [facility], primarily because it is closer to home. Patient informed, if a secondary plan is necessary, [facility] SW notified.
[2019-03-28] MEDS ORDERED: FUROSEMIDE 40 MG/4 ML INJ (LASIX) IVP NR (09:45)
[2019-03-28] MEDS: ENOXAPARIN 40 MG/0.4 ML (LOVENOX) SYR SC SCH (10:08)
--- NOTE | 2019-03-28 10:25 | Progress Note-Cardiology ---
Cardiology SOAP Progress Note Subjective: No cp or palp or syncope or shortness of breath at rest Objective: I&O/Vital Signs 03/28/19 03/28/19 03/28/19 03/28/19 00:00 04:00 08:00 08:07 Temp 98.4 98.4 98.0 Pulse 98 100 118 Resp 20 18 20 B/P (MAP) 148/78 (101) 131/65 (87) 126/68 (87) Pulse Ox 99 98 98 98 O2 Delivery Room Air Room Air Room Air Room Air O2 Flow Rate 0.00 03/27/19 23:59 Intake Total 3140 ml Output Total 350 ml Balance 2790 ml Weight (Pounds): 147 Weight (Ounces): 0.5 Weight (Calculated Kilograms): [id number] Constitutional: AAO x 3, other (thin) Respiratory: No accessory muscle use, No respiratory distress; chest expansion is symmetric, chest is bilaterally symmetric, lungs clear to auscultation Cardiovascular: regular rate-rhythm; No JVD; S1 and S2, systolic murmur Gastrointestional: No tender; soft, round, audible bowel sounds Extremities: swelling (mild bilat LE swelling) Neurologic/Psychiatric: grossly intact (did not manipulate right leg d/t fracture) Skin: No rash on exposed areas, No ulcerations on exposed areas Results/Procedures: Labs Laboratory Tests 03/28/19 05:35: White Blood Count 13.3H, Red Blood Count 2.21L, Hemoglobin 7.3L, Hematocrit 21L, Mean Corpuscular Volume 93, Mean Corpuscular Hemoglobin 33, Mean Corpuscular Hemoglobin Concent 35, Red Cell Distribution Width 15.5H, Platelet Count 319, Mean Platelet Volume 10.0, Neutrophils (%) (Auto) 84H, Lymphocytes (%) (Auto) 7L , Monocytes (%) (Auto) 9, Eosinophils (%) (Auto) 0, Basophils (%) (Auto) 0, Neutrophils # (Auto) 11.2H, Lymphocytes # (Auto) 0.9L, Monocytes # (Auto) 1.1H, Eosinophils # (Auto) 0.0, Basophils # (Auto) 0.0, Sodium Level 129L, Potassium Level 4.1, Chloride Level 103, Carbon Dioxide Level 20L, Anion Gap 6, Blood Urea Nitrogen 12, Creatinine 0.84, Estimat Glomerular Filtration Rate > 60, BUN/Creatinine Ratio 14, Glucose Level 115H, Calcium Level 7.6L, Corrected Calcium 8.8, Total Bilirubin 0.5, Aspartate Amino Transf (AST/SGOT) 43H, Alanine Aminotransferase (ALT/SGPT) 13, Alkaline Phosphatase 46, Total Protein 4.6L, Albumin 2.5L Microbiology 03/26/19 MRSA Screen - Final, Complete MRSA not isolated Laboratory Tests 03/26/19 11:06 03/27/19 05:55 03/28/19 05:35 A/P: Assessment: S/P right femur fracture from a non-syncopal fall, s/p repair on 03/26/19 Echo of 03/26/19: LVEF 55-60%, mild to mod MR, mod dilatation of LA, RVSP estimated to be within normal limits HTN HLD - statin tx H/o IFG vs borderline DM II Hyponatremia of undetermined etiology - possibly d/t chronic heavy alcohol use Renal insufficiency of undetermined age, probably acute H/O Heavy ETOH use H/O chronic back pain GERD Plan: * We're holding off on bp meds, given intermittently low bp * Blood transfusion today * Monitor labs ANA GONZALEZ MD FACP FAC CCDS Mar 28, 2019 10:24
--- NOTE | 2019-03-28 10:34 | NUR ---
CM/SS. Patient choice of care plan is to transfer to [facility] to continue his therapy and proposal lead writer confirmed this a.m. his acceptance for tomorrow. Updated patient, he will speak with his family about transportation and he understands it needs to be a vehicle he can easily access and not a tall truck. Will fax final discharge orders to Miesha and/or Vanesa [place] [facility] FX: [phone] PH: [phone] Dr. Bedolla is patient's PCP, [facility] [place] out to him and he is willing to accept patient and follow during that admission.
--- NOTE | 2019-03-28 11:52 | Occupational Therapy Eval ---
OT Evaluation-General/PLF Medical Diagnosis Admission Date Mar 26, 2019 at 00:09 Medical Diagnosis: right femur fracture Onset Date: Mar 26, 2019 Therapy Diagnosis Therapy Diagnosis: R femur fx Height/Weight Height (Feet): 5 Height (Inches): 9.00 Weight (Pounds): 147 Weight (Ounces): 0.5 Precautions Precautions/Isolations: Fall Prevention, Standard Precautions Safety Interventions: None Weight Bear Status Weight Bearing Restriction: Partial Weight Bearing Location Restriction: R LE Referral Physician: Chari Referral Reason: Activity Tolerance, Self Care, Evaluation/Treatment, Strengthening/ROM Medical History Pertinent Medical History: Alcoholism, Arthritis Social History Home: Single Level Current Living Status: Alone Pt reports living at home alone and independent with all ADLs and IADLs without UE support prior to recent femur fracture. The pt was still driving, and does not have AE in his shower except for grab bars. ADL-Prior Level of Function Therapy Code Descriptions/Definitions Functional [place] Measure: 0=Not Assessed/NA 4=Minimal Assistance 1=Total Assistance 5=Supervision or Setup 2=Maximal Assistance 6=Modified [place] 3=Moderate Assistance 7=Complete [place] Therapy Quality Codes: 6 Independent with activity with or without an assistive device 5 Patient requires set up or clean up by helper. Patient completes activity by themselves 4 Supervision or touching assist (CGA). Jarrell provide cues , steadying assist 3 The helper provides less than half the effort to complete the activity 2 The helper provides more than half the effort to complete the activity 1 Dependent. The helper does all the effort to complete an activity 7 Patient refused to complete or attempt activity 9 The patient did not perform the activity before the current illness or injury 88 Not attempted due to Medical conditions or safety concerns Functional Abilities and Goals: Independent: Patient completed the activities by him/herself, with or without an assistive device, with no assistance from a helper. Needed Some Help: Patient needed partial assistance from another person to complete activities. Dependent: A helper completed the activities for the patient. Unknown: Not Applicable: Self Care: Independent Functional Cognition: Independent DME/Equipment: Grab Bars Drive Self: Yes OT Current Status Subjective Pt alert and seated in recliner upon therapist arrival. Agreeable to participate with OT services, however pt complaining of severe pain and requested to lay down in bed following therapy session. Pain Numeric Pain Scale: 10-Worst Possible Pain Location: Right Location Body Site: Hip Mental Status/Objective Patient Orientation: Person, Place, Time, Situation Current Upper Extremity ROM WFL Upper Extremity Coordination WFL Upper Extremity Sensation WFL Upper Extremity Strength 4/5 through BUE's ADL-Treatment Therapy Code Descriptions/Definitions Functional [place] Measure: 0=Not Assessed/NA 4=Minimal Assistance 1=Total Assistance 5=Supervision or Setup 2=Maximal Assistance 6=Modified [place] 3=Moderate Assistance 7=Complete [place] Therapy Quality Codes: 6 Independent with activity with or without an assistive device 5 Patient requires set up or clean up by helper. Patient completes activity by themselves 4 Supervision or touching assist (CGA). Jarrell provide cues , steadying assist 3 The helper provides less than half the effort to complete the activity 2 The helper provides more than half the effort to complete the activity 1 Dependent. The helper does all the effort to complete an activity 7 Patient refused to complete or attempt activity 9 The patient did not perform the activity before the current illness or injury 88 Not attempted due to Medical conditions or safety concerns Grooming (FIM): 5 (grooming/hygiene completed with setup from recliner level. ) Bathing (FIM): 3 (ModA for sponge bathing of LE's and buttocks region. Setup for sponge bathing of UE's, chest, and abdomen. ) Upper Body Dressing (FIM): 5 (SBA for safety with UBD) Lower Body Dressing (FIM): 2 (MaxA for LBD, including the need for verbal cues to maintain PWB precautions through RLE. ) Toileting (FIM): 2 (MaxA for toileting including toileting transfer. MaxA toileting hygiene, and able to maintain standing balance when receiving assistance for hygiene with Laila. ) Toilet/Commode Transfer (FIM): 2 (MaxA all functional transfers. ) Education OT Patient Education: Correct positioning, Modified ADL techniques, Purpose of tx/functional activities, Reviewed precautions, Safety issues, Transfer techniques, Use of adapted equipment Teaching Recipient: Patient Teaching Methods: Demonstration, Discussion Response to Teaching: Verbalize Understanding, Return Demonstration, Reinforcement Needed OT Short Term Goals Short Term Goals Time Frame: Apr 04, 2019 Bathing(FIM): 5 Upper Body Dressing(FIM): 6 Lower Body Dressing(FIM): 5 Toileting(FIM): 5 Transfers (B,C,W/C) (FIM): 5 Additional Short Term Goals: 1-Demonstrate ADL Tasks, 2-Verbalize Understanding, 3-ImproveStrength/Chikis 1=Demonstrate adherence to instructed precautions during ADL tasks. 2=Patient will verbalize/demonstrate understanding of assistive devices/modifications for ADL. 3=Patient will improve strength/tolerance for activity to enable patient to perform ADL's. OT Detention Goals Detention Goals Time Frame: Apr 11, 2019 Bathing(FIM): 6 Upper Body Dressing(FIM): 6 Lower Body Dressing(FIM): 6 Toileting(FIM): 6 Transfers (B,C,W/C) (FIM): 6 Additional Goals: 1-Demonstrate ADL Tasks, 2-Verbalize Understanding, 3- ImproveStrength/Chikis 1=Demonstrate adherence to instructed precautions during ADL tasks. 2=Patient will verbalize/demonstrate understanding of assistive devices/modifications for ADL. 3=Patient will improve strength/tolerance for activity to enable patient to perform ADL's. OT Education/Plan Problem List/Assessment Assessment: Decreased Activ Tolerance, Decreased Safety Aware, Dependent Transfers, Impaired Coordination, Impaired Funct Balance, Impaired I ADL's, Impaired Self-Care Skills Discharge Recommendations Plan/Recommendations: Continue POC Therapy D/C Recommendations: Acute Rehab, Senior Living (TCU/NH) Equpiment Recommendations-D/C: Extended Bath Bench, Desk Maker, Hip Kit, Rails on Toilet, Toilet Riser Treatment Plan/Plan of Care Treatment,Training & Education: Yes Patient would benefit from OT for education, treatment and training to promote independence in ADL's, mobility, safety and/or upper extremity function for ADL's. Plan of Care: ADL Retraining, Functional Mobility, UE Funct Exercise/Act, UE Neuromus Re-Ed/Coord Treatment Duration: Apr 11, 2019 Frequency: 6 times per week Estimated Hrs Per Day: .5 hour per day Agreement: Yes Rehab Potential: Good Time/GCodes Start Time: 11:20 Stop Time: 11:55 Total Time Billed (hr/min): 35 Billed Treatment Time 1, EVM1, ADL2 LARRY MATUTE OT Mar 28, 2019 11:52
--- NOTE | 2019-03-28 12:58 | Progress Note-Hospitalist ---
Progress Note Progress Notes/Assess & Plan Date Seen 03/28/19 Time Seen by Provider: 12:57 Assessment & Plan The patient is in good humor. At admission his hemoglobin was 9 and it has fallen to 7.4. He is receiving a 1 unit transfusion today. He is to go to [facility] bed for physical therapy tomorrow. Physical exam: He is alert and oriented. Lungs are clear to auscultation. CV is regular without murmur. Impression: Fracture right femur with stabilization by intramedullary nail. Plan: Transfer to [facility] tomorrow. ARUN NEGRON MD Mar 28, 2019 12:58
[2019-03-28] MEDS ORDERED: FUROSEMIDE 40 MG/4 ML INJ (LASIX) ONE (13:59)
--- NOTE | 2019-03-28 14:20 | NUR ---
Pastoral care visit
[2019-03-28] MEDS: ACETAMINOPHEN 325 MG TABLET PO PRN (14:52)
[2019-03-29 00:12] VITALS: BP 118/69
--- NOTE | 2019-03-29 01:24 | DISCHARGE SUMMARY ---
DATE OF SERVICE: DIAGNOSES: 1. Right subtrochanteric femur fracture. 2. Anemia secondary to surgical blood loss and chronic disease. 3. History of compression fractures. PROCEDURES PERFORMED: 1. Right femur intramedullary nail. 2. Transfusion of packed red blood cells. SUMMARY: The patient is a 73-year-old gentleman, who was transferred from outside facility due to no orthopedic coverage and a subtrochanteric femur fracture. On the day of admission, he underwent intramedullary fixation. His hemoglobin on arrival, but dropped to 7.3 and he received one unit of packed red blood cells. Postoperatively, otherwise, he did very well. His wound was clean and dry. No calf tenderness. Negative Homans sign. DISPOSITION: Discharged to swing bed at Hospital. FOLLOWUP: Followup is in three weeks. Job ID: [id number] DocumentID: [id number] Dictated Date: 03/28/2019 19:50:42 Teacher Education Instructor Date: 03/29/2019 01:24:03 Dictated By: RC MITCHELL MD
[2019-03-29 04:50] VITALS: BP 112/69
[2019-03-29 06:06] LABS: HEMOGLOBIN 9.4 G/DL (13.3-17.7)
--- NOTE | 2019-03-29 08:04 | Progress Note-Standard ---
Standard Progress Note Progress Notes/Assess & Plan Date Seen by a Provider: Mar 29, 2019 Time Seen by a Provider: 08:03 Progress/Assessment & Plan no complaints Laboratory Tests Test 03/26/19 07:45 03/26/19 11:06 03/27/19 05:55 Range/Units Prothrombin Time 14.9 H 12.2-14.7 SEC INR Comment 1.1 0.8-1.4 Sodium Level 130 L 135-145 MMOL/L Potassium Level 4.8 3.6-5.0 MMOL/L Chloride Level 101 98-107 MMOL/L Carbon Dioxide Level 22 21-32 MMOL/L Anion Gap 7 5-14 MMOL/L Blood Urea Nitrogen 14 7-18 MG/DL Creatinine 1.11 0.60-1.30 MG/DL Estimat Glomerular Filtration Rate > 60 BUN/Creatinine Ratio 13 Glucose Level 87 70-105 MG/DL Calcium Level 9.0 8.5-10.1 MG/DL Hemoglobin 8.2 L 13.3-17.7 G/DL Hematocrit 24 L 40-54 % RLE--dressing intact. intact DF and PF of toes and ankle. equal DP pulses. sensation at baseline throughout s/p IM SHUN R femur PT fot 50% WB RLE will likely require NH vs WM placement Final Diagnosis no complaints Vital Signs Date Time Temp Pulse Resp B/P (MAP) Pulse Ox O2 Delivery O2 Flow Rate FiO2 03/29/19 04:50 98.1 85 16 112/69 (83) 95 Room Air 03/29/19 00:12 98.4 81 16 118/69 (85) 97 Room Air 03/28/19 20:32 99 Room Air 03/28/19 19:40 97.8 107 18 138/85 (102) 99 Room Air 03/28/19 19:40 97.8 107 18 138/85 99 Room Air 03/28/19 16:21 98.8 90 18 114/58 (76) 98 Room Air 0.00 03/28/19 15:52 98.4 97 18 143/84 98 Room Air 03/28/19 15:34 98.8 90 20 140/84 98 Room Air 03/28/19 13:45 97.8 88 18 139/78 99 03/28/19 12:15 97.6 103 17 124/72 (89) 100 Room Air 0.00 03/28/19 11:25 98.2 89 20 132/73 100 Room Air 03/28/19 11:17 98.2 88 20 125/75 100 Room Air 03/28/19 08:07 98.0 118 20 126/68 (87) 98 Room Air 0.00 I & O 03/29/19 07:00 Intake Total 2280 ml Output Total 2400 ml Balance -120 ml Laboratory Tests Test 03/29/19 05:10 Range/Units Hemoglobin 9.4 #L 13.3-17.7 G/DL Hematocrit 27 L 40-54 % RLE dressing intact. no calf tenderness s/p IM Shun R femur transfer to [facility] swing bed today RC MITCHELL MD Mar 29, 2019 08:04
[2019-03-29 08:11] VITALS: BP 119/67
[2019-03-29] MEDS: ENOXAPARIN 40 MG/0.4 ML (LOVENOX) SYR SC SCH (08:47)
--- NOTE | 2019-03-29 09:36 | Progress Note-Cardiology ---
Cardiology SOAP Progress Note Subjective: In bed. States he is leaving today. No c/o CP, dyspnea or palpitations. Objective: I&O/Vital Signs 03/29/19 03/29/19 03/29/19 04:50 08:00 08:11 Temp 98.1 98.3 Pulse 85 90 Resp 16 20 B/P (MAP) 112/69 (83) 119/67 (84) Pulse Ox 95 96 O2 Delivery Room Air Room Air Room Air O2 Flow Rate 0.00 03/29/19 00:00 Intake Total 1280 ml Output Total 1925 ml Balance -645 ml Weight (Pounds): 147 Weight (Ounces): 0.5 Weight (Calculated Kilograms): [id number] Constitutional: AAO x 3, other Respiratory: chest expansion is symmetric, chest is bilaterally symmetric, lungs clear to auscultation Cardiovascular: regular rate-rhythm, S1 and S2, systolic murmur Gastrointestional: soft, round, audible bowel sounds Extremities: other (S/P right hip repair; island dressing in place (not removed)) Neurologic/Psychiatric: grossly intact Skin: No rash on exposed areas, No ulcerations on exposed areas Results/Procedures: Labs Laboratory Tests 03/29/19 05:10: Hemoglobin 9.4#L, Hematocrit 27L 03/29/19 12:40: Lab Scanned Report Transfusion Reaction Form Microbiology 03/26/19 MRSA Screen - Final, Complete MRSA not isolated A/P: Assessment: S/P right femur fracture from a non-syncopal fall, s/p repair on 03/26/19 Echo of 03/26/19: LVEF 55-60%, mild to mod MR, mod dilatation of LA, RVSP estimated to be within normal limits HTN HLD - statin tx H/o IFG vs borderline DM II Hyponatremia of undetermined etiology - possibly d/t chronic heavy alcohol use Renal insufficiency of undetermined age, probably acute H/O Heavy ETOH use H/O chronic back pain GERD Plan: * Post-op anemia * H/H improved following transfusions * Plan per surgical/medical services is to transfer to [facility] today * He wishes to follow up with his regular correctional supervisor lieutenant (Dr. Anderson), he reports he has an appt on April 06, 2019 to see him Physician Assessment Physician Assessment Feels a bit stronger today. No cp. No shortness of breath at rest. No palp. No syncope Lungs: diminished air entry at the bases Cor: reg Ext: no c/c/e A&R * As documented in our note above that I updated and as noted below * He states he will f/u with regular correctional supervisor lieutenant on an outpt basis CORBIN MONREAL Mar 29, 2019 09:36 ANA GONZALEZ MD FACP FAC CCDS Mar 29, 2019 14:07
--- NOTE | 2019-03-29 10:07 | Progress Note-Hospitalist ---
Progress Note Progress Notes/Assess & Plan Date Seen 03/29/19 Time Seen by Provider: 10:02 Assessment & Plan The patient has done quite well with the post surgical phase. Arrangements have been made for him to be transferred to the [facility] swing bed with PT and OT today. This is much more convenient to his home. He is motivated and looking forward to the experience. Physical exam: Lungs are clear. CV is regular. Impression: Fracture right femur post intra medullary nailing. Plan: Discharge and transferred to [facility] swing bed. ARUN NEGRON MD Mar 29, 2019 10:07
--- NOTE | 2019-03-29 10:17 | Discharge Inst-Skilled Nursing ---
Discharge Inst-Skilled NF Chief Complaint The patient is a 73-year-old white male who was transferred from the [facility]. He is disabled with compression fractures in the lumbar spine and subsequent sciatica issues. In addition he previously had a left hip fracture. Yesterday he attempted to get out of the recliner using a walker. His legs buckled and he fell. He states that he was on the floor for 3 hours before getting help. He went to the emergency room and was found to have a right femur fracture. I received a call from Mr. Kapoor to transfer him here and he had arranged for Dr. Marcelino to perform the definitive stabilization. The patient reports that he drinks beer on a daily basis he told Mr. Kapoor 2-3 beers per day. His family states more like 4-6 beers per day. Patient Instructions Patient Problems: Fracture right femur with placement of intra-medullary nail 2.previous fracture left hip with operative repair. Goal: Anabaptism to ambulation. Consult/Follow Up/Orders Skilled NF Admit to: [facility] Certification (SNF) I certify that SNF services are required to be given on an inpatient basis because of the above named patient's need for assisted care on a continuing basis for the conditions(s) for which he/she was receiving inpatient hospital services prior to his/her transfer to the SNF. y [facility] Facility Order: Belt Loop Maker-Evaluate & Treat, Physical Therapy-Evaluate & Treat Oxygen Delivery Method: Room Air Discharge Diet: No Restrictions Daily Activity as Tolerated: Yes New & Resume Previous Orders Matthew Negron Mar 29, 2019 10:15 MATTHEW NEGRON MD Mar 29, 2019 10:16
--- NOTE | 2019-03-29 10:40 | NUR ---
HL REMOVED. SITE CLEAR.
--- NOTE | 2019-03-29 10:55 | NUR ---
Important Message from Medicare presented, reviewed, signed and charted. Patient voiced no intention to appeal and deny any needs or further questions at this time.
--- NOTE | 2019-03-29 11:03 | NUR ---
REPORT TO TERRY SOLIMAN AT [facility]. AWAITING FOR TRANSPORT.
--- NOTE | 2019-03-29 12:15 | NUR ---
HERE. DC PAPERS TO TO GIVE TO DEMETRI MORALES. HOME MEDS RET'D TO . DC'D PER WC.
--- NOTE | 2019-03-29 12:53 | NUR ---
CM/SS. Finalized patient admission to [facility], faxed orders and worked in partnership with team there to accomplish. Patient spouse was to transport, Unit RN aware of all plans and coordinated pick and shovel worker with spouse. Goal is short term stay and return home when able.
== END 2019-03-29 12:16 | disposition swing bed (61) | DRG 481 ==
LOC: 4TH 03-26 00:09
PROVIDERS: ADMIT Internal Medicine; ATTEND Internal Medicine
PROC: 0QS606Z Reposition Right Upper Femur with Intramedullary Internal Fixation Device, Open Approach (ICD-10-PCS; principal; 2019-03-26 15:44)
DX: S72.24XA Nondisplaced subtrochanteric fracture of right femur, initial encounter for closed fracture (principal); D62 Acute posthemorrhagic anemia; E87.1 Hypo-osmolality and hyponatremia; N28.9 Disorder of kidney and ureter, unspecified; I95.9 Hypotension, unspecified; D63.8 Anemia in other chronic diseases classified elsewhere; E11.9 Type 2 diabetes mellitus without complications; I10 Essential (primary) hypertension; E78.5 Hyperlipidemia, unspecified; I34.0 Nonrheumatic mitral (valve) insufficiency; K21.9 Gastro-esophageal reflux disease without esophagitis; W18.09XA Striking against other object with subsequent fall, initial encounter; Y92.019 Unspecified place in single-family (private) house as the place of occurrence of the external cause; Z79.84 Long term (current) use of oral hypoglycemic drugs
CPT/HCPCS: 36415; 80048; 80053; 83540; 85007; 85014; 85018; 85025; 85027; 85610; 86850; 86900; 86901; 86920; 87081; 93306; 94664

== ENCOUNTER → 2023-03-25 | Outpatient (CLI) | payer MEDICARE, MEDICAID ==
[~2023-03-25] MED LIST changes: +ACHD5005 PO; +ASPI-1238 PO; +CALC-899 PO; +CYCL5TAB PO; +DILT300C49 PO; +EZET10TA49 PO; +FENO145T26 PO; +IBUP-30 PO; +LOSA50TA63 PO; +NAPR220T66 PO; +OMEG-109 PO; +OMEP20CA18 PO; +POTA-51 PO; +PRAV20TA3 PO; +VITA1TAB17 PO
[2023-03-25 17:15] LABS: BILIRUBIN,URINE NEGATIVE (NEGATIVE); CLARITY,URINE CLEAR; COLOR,URINE YELLOW; GLUCOSE, URINE (UA) NEGATIVE (NEGATIVE); KETONES,URINE NEGATIVE (NEGATIVE); LEUKOCYTE ESTERASE ,URINE TRACE (NEGATIVE); NITRITE,URINE NEGATIVE (NEGATIVE); PH,URINE 5.5 (5-9); PROTEIN,URINE NEGATIVE (NEGATIVE)
[2023-03-25 17:32] LABS: BACTERIA,URINE NEGATIVE /HPF; RBC,URINE RARE /HPF; WBC,URINE 0-2 /HPF
== END ==
LOC: LABNPT 17:09
PROVIDERS: ATTEND Family Medicine
DX: R41.82 Altered mental status, unspecified (principal)
CPT/HCPCS: 81000